=== PATIENT | female | born 1935 | race African-American/Black ===

== ENCOUNTER 2022-05-24 21:39 | Inpatient (IN) | payer MEDICARE, MEDICAID ==
[~2022-05-24] VITALS: Ht 160 cm; Wt 84.1 kg
[2022-05-24] MEDS ORDERED: NITROGLYCERIN 0.4MG TABLET SL SL PRN (22:15)
[2022-05-24] MEDS ORDERED: ASPIRIN 81MG TABLET PO ONE (22:15)
[2022-05-25 00:40] LABS: BASOPHILS % 0.8 % (0.0-2.0); EOSINOPHILS % 1.8 % (0.0-5.0); HEMATOCRIT. 29.1 % (36.0-48.0); HEMOGLOBIN. 9.6 g/dL (12.0-16.0); LYMPHOCYTES % 30.7 % (20.0-50.0); MEAN CORPUSCULAR HEMOGLOBIN 30.3 pg (28.0-32.0); MEAN CORPUSCULAR VOLUME 91.7 fL (81.0-99.0); MEAN PLATELET VOLUME 6.4 fl (7.4-10.4); MONOCYTES % 10.9 % (2.0-8.0); NEUTROPHILS % 55.8 % (40.0-76.0); PLATELET 216 x1000/uL (130-400); RED BLOOD CELL COUNT 3.17 mill/uL (4.2-5.4); RED CELL DISTRIBUTION WIDTH 15.6 % (11.6-14.6)
[2022-05-25 00:45] LABS: CHLORIDE 101 mEq/L (98-107)
[2022-05-25] MEDS ORDERED: ONDANSETRON HCL 4MG/2ML INJ IV PRN (07:45)
[2022-05-25] MEDS ORDERED: GUAIFENESIN 200MG/10ML SUGAR FREE UDC PO PRN (07:45)
[2022-05-25] MEDS ORDERED: ACETAMINOPHEN 325MG TABLET PO PRN (07:45)
[2022-05-25] MEDS ORDERED: MAGNESIUM/ALUMINUM HYDROXIDE/SIMETHICONE 30ML UDC PO PRN (07:45)
[2022-05-25] MEDS ORDERED: CLONIDINE 0.1MG TABLET PO PRN (07:45)
[2022-05-25] MEDS ORDERED: IPRATROPIUM/ALBUTEROL 0.5-3(2.5)MG/3ML NEB NEB PRN (07:45)
[2022-05-25] MEDS: INSULIN LISPRO 100 UNITS/ML SUBCUT SCH ×4 (08:20→21:00)
[2022-05-25 08:42] LABS: T4 FREE 1.24 ng/dL (0.76-1.46)
[2022-05-25] MEDS ORDERED: ASPIRIN 325MG EC TABLET PO SCH (09:00)
[2022-05-25] MEDS ORDERED: ENOXAPARIN 40MG/0.4ML SYR SUBCUT SCH (09:00)
[2022-05-25] MEDS: BLOOD SUGAR DIAGNOSTIC STRIP TEST SCH ×4 (09:29→21:00)
[2022-05-25] MEDS: PANTOPRAZOLE SODIUM 40 MG/VIAL IV SCH (09:37)
[2022-05-25 09:46] VITALS: BP 102/80
[2022-05-25] MEDS: DILTIAZEM HCL 60MG TABLET PO SCH ×3 (11:59→23:23)
[2022-05-25 12:00] VITALS: BP 132/69
[2022-05-25] MEDS ORDERED: APIX5TAB PO (13:17)
[2022-05-25] MEDS ORDERED: GABA-529 PO (13:27)
[2022-05-25] MEDS ORDERED: DOCU250C69 PO (13:27)
[2022-05-25] MEDS ORDERED: FURO20TA4 PO (13:27)
[2022-05-25] MEDS ORDERED: FERR325T6 PO (13:27)
[2022-05-25] MEDS ORDERED: CYAN500T9 PO (13:27)
[2022-05-25] MEDS ORDERED: MAGN400C PO (13:27)
[2022-05-25] MEDS ORDERED: LEVO25TA7 PO (13:27)
[2022-05-25] MEDS ORDERED: METO25TA6 PO (13:27)
[2022-05-25] MEDS ORDERED: LUTE1CAP5 PO (13:27)
[2022-05-25] MEDS ORDERED: LIDO700A30 TP (13:27)
[2022-05-25] MEDS ORDERED: TRAM50TA PO (13:27)
[2022-05-25] MEDS ORDERED: ASCO500C18 PO (13:27)
[2022-05-25] MEDS ORDERED: BRIM10DR2 EACHEYE (13:27)
[2022-05-25] MEDS: NITROGLYCERIN 0.4MG TABLET SL SL PRN (15:09)
[2022-05-25] MEDS: LIDOCAINE 5% PATCH TOP SCH (15:10)
[2022-05-25] MEDS ORDERED: NALOXONE HCL 0.4MG/ML VIAL IV PRN (15:15)
[2022-05-25] MEDS ORDERED: POTASSIUM CHLORIDE 20MEQ/PACKET PO NR (15:30)
[2022-05-25 15:37] VITALS: BP 110/68
[2022-05-25] MEDS ORDERED: FOLIC ACID 1 MG in SODIUM CHLORIDE 0.9% 500 ML IV NR (16:00)
[2022-05-25 20:00] VITALS: BP 96/66
[2022-05-25] MEDS ORDERED: ZOLPIDEM TARTRATE 5MG TABLET PO PRN (21:00)
[2022-05-25] MEDS: METOPROLOL TARTRATE 25MG TABLET PO SCH (21:00)
[2022-05-26] VITALS: BP 119/69
[2022-05-26 04:00] VITALS: BP 106/72
[2022-05-26] MEDS: NITROGLYCERIN 0.4MG TABLET SL SL PRN ×2 (05:36→05:45)
[2022-05-26] MEDS: DILTIAZEM HCL 60MG TABLET PO SCH (06:00)
[2022-05-26] MEDS: BLOOD SUGAR DIAGNOSTIC STRIP TEST SCH ×3 (07:06→21:00)
[2022-05-26] MEDS: INSULIN LISPRO 100 UNITS/ML SUBCUT SCH ×3 (07:06→21:00)
[2022-05-26 08:00] VITALS: BP 104/64
[2022-05-26 08:06] LABS: BASOPHILS % 0.6 % (0.0-2.0); EOSINOPHILS % 1.5 % (0.0-5.0); HEMATOCRIT. 31.3 % (36.0-48.0); HEMOGLOBIN. 10.3 g/dL (12.0-16.0); LYMPHOCYTES % 33.1 % (20.0-50.0); MEAN CORPUSCULAR HEMOGLOBIN 30.2 pg (28.0-32.0); MEAN CORPUSCULAR VOLUME 92.2 fL (81.0-99.0); MEAN PLATELET VOLUME 6.7 fl (7.4-10.4); NEUTROPHILS % 56.8 % (40.0-76.0); PLATELET 220 x1000/uL (130-400); RED CELL DISTRIBUTION WIDTH 15.4 % (11.6-14.6)
[2022-05-26 08:17] LABS: CHLORIDE 101 mEq/L (98-107)
[2022-05-26 08:31] LABS: CREATINE KINASE 49 IU/L (26-192); CREATINE KINASE MB FRACTION 1.2 ng/mL (0.5-3.6)
[2022-05-26] MEDS: TRAMADOL 50MG TABLET PO PRN ×2 (11:01→17:04)
[2022-05-26] MEDS: METOPROLOL TARTRATE 25MG TABLET PO SCH ×2 (11:06→21:00)
[2022-05-26] MEDS: APIXABAN 5 MG TABLET PO SCH ×2 (11:07→17:03)
[2022-05-26] MEDS: FOLIC ACID 1MG TABLET PO SCH (11:07)
[2022-05-26] MEDS: LIDOCAINE 5% PATCH TOP SCH (11:09)
[2022-05-26] MEDS: PANTOPRAZOLE SODIUM 40 MG/VIAL IV SCH (11:09)
[2022-05-26 12:00] VITALS: BP 93/60
[2022-05-26 16:00] VITALS: BP 107/72
[2022-05-26 20:00] VITALS: BP 107/68
[2022-05-26] MEDS: DOCUSATE SODIUM 100MG CAPSULE PO PRN (20:47)
[2022-05-27] VITALS: BP 106/74
[2022-05-27 04:00] VITALS: BP 123/84
[2022-05-27] MEDS: BLOOD SUGAR DIAGNOSTIC STRIP TEST SCH ×4 (05:50→20:24)
[2022-05-27] MEDS: INSULIN LISPRO 100 UNITS/ML SUBCUT SCH ×4 (05:51→20:23)
[2022-05-27 08:00] VITALS: BP 138/92
[2022-05-27] MEDS: FOLIC ACID 1MG TABLET PO SCH (09:30)
[2022-05-27] MEDS: APIXABAN 5 MG TABLET PO SCH ×2 (09:30→18:08)
[2022-05-27] MEDS: METOPROLOL TARTRATE 25MG TABLET PO SCH ×2 (09:30→20:23)
[2022-05-27] MEDS: PANTOPRAZOLE SODIUM 40 MG/VIAL IV SCH (09:32)
[2022-05-27] MEDS: TRAMADOL 50MG TABLET PO PRN ×2 (09:32→18:11)
[2022-05-27] MEDS: LIDOCAINE 5% PATCH TOP SCH (09:35)
[2022-05-27 12:00] VITALS: BP 107/72
[2022-05-27 16:00] VITALS: BP 103/71
[2022-05-27 20:00] VITALS: BP 97/61
[2022-05-27] MEDS: ACETAMINOPHEN 325MG TABLET PO PRN (20:52)
[2022-05-28] VITALS: BP 92/56
[2022-05-28 04:00] VITALS: BP 90/61
[2022-05-28] MEDS: BLOOD SUGAR DIAGNOSTIC STRIP TEST SCH ×4 (05:42→21:00)
[2022-05-28] MEDS: INSULIN LISPRO 100 UNITS/ML SUBCUT SCH ×4 (05:43→21:00)
[2022-05-28 08:00] VITALS: BP 105/63
[2022-05-28] MEDS: METOPROLOL TARTRATE 25MG TABLET PO SCH ×2 (09:00→21:00)
[2022-05-28] MEDS: DOCUSATE SODIUM 100MG CAPSULE PO PRN (09:13)
[2022-05-28] MEDS: FAMOTIDINE 20MG TABLET PO SCH (09:13)
[2022-05-28] MEDS: APIXABAN 5 MG TABLET PO SCH ×2 (09:13→16:41)
[2022-05-28] MEDS: FOLIC ACID 1MG TABLET PO SCH (09:13)
[2022-05-28] MEDS: LIDOCAINE 5% PATCH TOP SCH (09:15)
[2022-05-28] MEDS: TRAMADOL 50MG TABLET PO PRN ×2 (09:15→16:46)
[2022-05-28 12:00] VITALS: BP 108/70
[2022-05-28 16:00] VITALS: BP 109/75
[2022-05-28] MEDS: MIDODRINE HCL 5MG TABLET PO SCH (16:41)
[2022-05-28] MEDS: FUROSEMIDE 20MG TABLET PO SCH (16:52)
[2022-05-28 20:00] VITALS: BP 103/85
[2022-05-29] VITALS: BP 112/77
[2022-05-29 04:00] VITALS: BP 120/80
[2022-05-29] MEDS: INSULIN LISPRO 100 UNITS/ML SUBCUT SCH ×4 (06:08→21:00)
[2022-05-29] MEDS: BLOOD SUGAR DIAGNOSTIC STRIP TEST SCH ×4 (06:08→21:00)
[2022-05-29 08:00] VITALS: BP 114/74
[2022-05-29 08:28] LABS: HEMATOCRIT. 30.6 % (36.0-48.0); HEMOGLOBIN. 10.1 g/dL (12.0-16.0); LYMPHOCYTES % 30.7 % (20.0-50.0); MEAN CORPUSCULAR HEMOGLOBIN 30.1 pg (28.0-32.0); MEAN CORPUSCULAR VOLUME 90.9 fL (81.0-99.0); MEAN PLATELET VOLUME 6.8 fl (7.4-10.4); MONOCYTES % 8.7 % (2.0-8.0); NEUTROPHILS % 58.6 % (40.0-76.0); PLATELET 348 x1000/uL (130-400); RED BLOOD CELL COUNT 3.36 mill/uL (4.2-5.4)
[2022-05-29] MEDS: FUROSEMIDE 20MG TABLET PO SCH (08:36)
[2022-05-29] MEDS: DOCUSATE SODIUM 100MG CAPSULE PO PRN (08:36)
[2022-05-29] MEDS: APIXABAN 5 MG TABLET PO SCH ×2 (08:36→17:27)
[2022-05-29] MEDS: FOLIC ACID 1MG TABLET PO SCH (08:36)
[2022-05-29] MEDS: MIDODRINE HCL 5MG TABLET PO SCH ×3 (08:36→17:27)
[2022-05-29] MEDS: FAMOTIDINE 20MG TABLET PO SCH (08:36)
[2022-05-29] MEDS: TRAMADOL 50MG TABLET PO PRN ×2 (08:37→14:59)
[2022-05-29] MEDS: LIDOCAINE 5% PATCH TOP SCH (08:39)
[2022-05-29] MEDS: METOPROLOL TARTRATE 25MG TABLET PO SCH ×2 (09:00→21:00)
[2022-05-29 09:07] LABS: CHLORIDE 95 mEq/L (98-107)
[2022-05-29 12:00] VITALS: BP 116/79
[2022-05-29] MEDS ORDERED: FUROSEMIDE 40MG/4ML VIAL IVP NR (13:00)
[2022-05-29 16:00] VITALS: BP 130/91
[2022-05-30] VITALS: BP 122/89
[2022-05-30 04:00] VITALS: BP 119/81
[2022-05-30] MEDS: INSULIN LISPRO 100 UNITS/ML SUBCUT SCH ×4 (05:41→20:27)
[2022-05-30] MEDS: BLOOD SUGAR DIAGNOSTIC STRIP TEST SCH ×4 (05:41→20:27)
[2022-05-30 08:00] VITALS: BP 122/77
[2022-05-30] MEDS: MIDODRINE HCL 5MG TABLET PO SCH ×3 (09:01→17:00)
[2022-05-30] MEDS: FOLIC ACID 1MG TABLET PO SCH (09:01)
[2022-05-30] MEDS: APIXABAN 5 MG TABLET PO SCH ×2 (09:01→16:35)
[2022-05-30] MEDS: FAMOTIDINE 20MG TABLET PO SCH (09:01)
[2022-05-30] MEDS: LIDOCAINE 5% PATCH TOP SCH (09:01)
[2022-05-30] MEDS: METOPROLOL TARTRATE 25MG TABLET PO SCH ×2 (09:01→20:27)
[2022-05-30] MEDS: FUROSEMIDE 20MG TABLET PO SCH (09:03)
[2022-05-30 12:00] VITALS: BP 97/66
[2022-05-30 16:00] VITALS: BP 102/67
[2022-05-30 20:00] VITALS: BP 119/75
[2022-05-31] VITALS: BP 120/83
[2022-05-31 04:00] VITALS: BP 122/74
[2022-05-31] MEDS: INSULIN LISPRO 100 UNITS/ML SUBCUT SCH ×4 (06:06→21:00)
[2022-05-31] MEDS: BLOOD SUGAR DIAGNOSTIC STRIP TEST SCH ×4 (06:06→21:00)
[2022-05-31 08:00] VITALS: BP 112/60
[2022-05-31] MEDS: METOPROLOL TARTRATE 25MG TABLET PO SCH ×2 (09:00→21:09)
[2022-05-31] MEDS: FAMOTIDINE 20MG TABLET PO SCH (09:40)
[2022-05-31] MEDS: FOLIC ACID 1MG TABLET PO SCH (09:40)
[2022-05-31] MEDS: MIDODRINE HCL 5MG TABLET PO SCH ×3 (09:40→17:00)
[2022-05-31] MEDS: APIXABAN 5 MG TABLET PO SCH ×2 (09:40→17:00)
[2022-05-31] MEDS: LIDOCAINE 5% PATCH TOP SCH (09:41)
[2022-05-31] MEDS: FUROSEMIDE 20MG TABLET PO SCH (09:41)
[2022-05-31 12:00] VITALS: BP 112/76
[2022-05-31] MEDS ORDERED: FUROSEMIDE 40MG/4ML VIAL IVP NR (12:30)
[2022-05-31 16:00] VITALS: BP 106/78
[2022-05-31] MEDS: TRAMADOL 50MG TABLET PO PRN (17:32)
[2022-05-31] MEDS ORDERED: ASCO-339 PO (19:49)
[2022-05-31] MEDS ORDERED: TRAZ-251 PO (19:52)
[2022-05-31] MEDS ORDERED: OMEP40CA20 PO (19:53)
[2022-05-31] MEDS ORDERED: POTA-205 PO (19:54)
[2022-05-31] MEDS ORDERED: CARV12.545 PO (19:55)
[2022-05-31] MEDS ORDERED: LOSA50TA41 PO (19:55)
[2022-05-31] MEDS ORDERED: LUTE1CAP5 PO (19:57)
[2022-05-31] MEDS ORDERED: SULF500T8 PO (19:59)
[2022-05-31] MEDS ORDERED: TRAM50TA3 PO (19:59)
[2022-05-31 20:00] VITALS: BP 112/74
[2022-05-31] MEDS ORDERED: ONDA4TAB50 PO (20:00)
[2022-05-31] MEDS ORDERED: TOPUD PO (20:01)
[2022-05-31] MEDS ORDERED: BISA10SU62 RC (20:02)
[2022-05-31] MEDS ORDERED: LACT1CAP87 PO (20:03)
[2022-05-31] MEDS ORDERED: MELA5TAB19 PO (20:04)
[2022-05-31] MEDS ORDERED: AMIN30LI2 PO (20:05)
[2022-05-31] MEDS ORDERED: CARB15DR2 BOTHEYE (20:07)
[2022-05-31] MEDS: ACETAMINOPHEN 325MG TABLET PO PRN (21:09)
[2022-06-01] VITALS: BP 90/66
[2022-06-01 04:00] VITALS: BP 104/74
[2022-06-01] MEDS: BLOOD SUGAR DIAGNOSTIC STRIP TEST SCH ×4 (06:04→21:00)
[2022-06-01] MEDS: INSULIN LISPRO 100 UNITS/ML SUBCUT SCH ×4 (06:05→21:00)
[2022-06-01 08:00] VITALS: BP 101/73
[2022-06-01] MEDS: METOPROLOL TARTRATE 25MG TABLET PO SCH ×2 (09:00→21:00)
[2022-06-01] MEDS: FUROSEMIDE 20MG TABLET PO SCH (09:00)
[2022-06-01] MEDS: SPIRONOLACTONE 25MG TABLET PO SCH (09:01)
[2022-06-01] MEDS: APIXABAN 5 MG TABLET PO SCH ×2 (09:01→17:00)
[2022-06-01] MEDS: MIDODRINE HCL 5MG TABLET PO SCH ×3 (09:01→17:00)
[2022-06-01] MEDS: FAMOTIDINE 20MG TABLET PO SCH (09:01)
[2022-06-01] MEDS: FOLIC ACID 1MG TABLET PO SCH (09:02)
[2022-06-01] MEDS: LIDOCAINE 5% PATCH TOP SCH (09:03)
[2022-06-01 12:00] VITALS: BP 116/74
[2022-06-01] MEDS: FUROSEMIDE 40MG TABLET PO SCH (14:01)
[2022-06-01] MEDS: NITROFURANTOIN 100MG M/M CAPSULE PO SCH ×2 (14:01→21:03)
[2022-06-01 16:00] VITALS: BP 123/88
[2022-06-01 20:00] VITALS: BP 100/74
[2022-06-01] MEDS: TRAMADOL 50MG TABLET PO PRN (21:03)
[2022-06-02] VITALS (7 sets, daily range): BP systolic 83–134; BP diastolic 50–77
[2022-06-02] MEDS: INSULIN LISPRO 100 UNITS/ML SUBCUT SCH ×4 (06:09→20:57)
[2022-06-02] MEDS: BLOOD SUGAR DIAGNOSTIC STRIP TEST SCH ×4 (06:09→20:56)
[2022-06-02] MEDS: DEXTROSE 50% WATER 50ML SYRINGE IV PRN ×2 (08:34→12:41)
[2022-06-02] MEDS: FOLIC ACID 1MG TABLET PO SCH (08:57)
[2022-06-02] MEDS: NITROFURANTOIN 100MG M/M CAPSULE PO SCH ×2 (08:57→20:56)
[2022-06-02] MEDS: FAMOTIDINE 20MG TABLET PO SCH (08:58)
[2022-06-02] MEDS: MIDODRINE HCL 5MG TABLET PO SCH ×3 (08:58→17:52)
[2022-06-02] MEDS: APIXABAN 5 MG TABLET PO SCH (08:58)
[2022-06-02] MEDS: METOPROLOL TARTRATE 25MG TABLET PO SCH ×2 (09:00→20:56)
[2022-06-02] MEDS: FUROSEMIDE 40MG TABLET PO SCH (09:00)
[2022-06-02] MEDS: SPIRONOLACTONE 25MG TABLET PO SCH (09:00)
[2022-06-02] MEDS ORDERED: SODIUM CHLORIDE 0.9% 500 ML IV ONE (10:15)
[2022-06-02] MEDS ORDERED: GLUCAGON,HUMAN RECOMBINANT 1MG/VIAL IM SCH (10:30)
[2022-06-02] MEDS: LIDOCAINE 5% PATCH TOP SCH (10:48)
[2022-06-02 11:40] LABS: HEMATOCRIT. 34.7 % (36.0-48.0); HEMOGLOBIN. 11.5 g/dL (12.0-16.0); MEAN CORPUSCULAR HEMOGLOBIN 30.3 pg (28.0-32.0); MEAN CORPUSCULAR VOLUME 91.3 fL (81.0-99.0); MEAN PLATELET VOLUME 7.4 fl (7.4-10.4); PLATELET 364 x1000/uL (130-400); RED CELL DISTRIBUTION WIDTH 15.2 % (11.6-14.6)
[2022-06-02] MEDS: DEXT 5%/0.9% NACL 1,000 ML IV SCH (13:16)
[2022-06-02 14:09] LABS: NUCLEATED RED BLOOD CELLS 14 /100 WBC; PLATELET ESTIMATE NORMAL
[2022-06-02] MEDS ORDERED: APIXABAN 2.5 MG TABLET PO SCH (17:15)
[2022-06-02] MEDS: TRAMADOL 50MG TABLET PO PRN (21:10)
[2022-06-03] VITALS: BP 97/47
[2022-06-03 04:00] VITALS: BP 100/69
[2022-06-03] MEDS: BLOOD SUGAR DIAGNOSTIC STRIP TEST SCH ×4 (05:50→21:17)
[2022-06-03] MEDS: INSULIN LISPRO 100 UNITS/ML SUBCUT SCH ×4 (05:50→21:00)
[2022-06-03 08:00] VITALS: BP 102/60
[2022-06-03] MEDS: FUROSEMIDE 40MG TABLET PO SCH (09:00)
[2022-06-03] MEDS: FAMOTIDINE 20MG TABLET PO SCH ×2 (10:29→18:02)
[2022-06-03] MEDS: NITROFURANTOIN 100MG M/M CAPSULE PO SCH ×2 (10:29→21:08)
[2022-06-03] MEDS: MIDODRINE HCL 5MG TABLET PO SCH ×3 (10:30→18:03)
[2022-06-03] MEDS: FOLIC ACID 1MG TABLET PO SCH (10:30)
[2022-06-03] MEDS: METOPROLOL TARTRATE 25MG TABLET PO SCH ×2 (10:30→20:22)
[2022-06-03] MEDS: LIDOCAINE 5% PATCH TOP SCH (10:31)
[2022-06-03 10:32] LABS: HEMATOCRIT. 32.8 % (36.0-48.0); HEMOGLOBIN. 10.8 g/dL (12.0-16.0); MEAN CORPUSCULAR HEMOGLOBIN 30.3 pg (28.0-32.0); MEAN PLATELET VOLUME 7.7 fl (7.4-10.4); PLATELET 258 x1000/uL (130-400); RED BLOOD CELL COUNT 3.56 mill/uL (4.2-5.4); RED CELL DISTRIBUTION WIDTH 15.4 % (11.6-14.6)
[2022-06-03] MEDS: DEXT 5%/0.9% NACL 1,000 ML IV SCH (11:04)
[2022-06-03] MEDS ORDERED: METOPROLOL TARTRATE 5MG/5ML VIAL IV NR (11:30)
[2022-06-03 12:00] VITALS: BP 96/58
[2022-06-03 13:25] LABS: BG BASE EXCESS -5.8 mmol/L (-2.0-2.0); BG CARBOXYHEMOGLOBIN 0.2 % (0.5-1.5); BG DEOXYHEMOGLOBIN 3.6 % (0.0-5.0); BG HCO3 ACT 17.9 mmol/L (22.0-26.0); BG METHEMOGLOBIN 0.2 % (0.0-1.5); BG OXYGEN SATURATION 96.4 % (92.0-98.5); BG PCO2 30.2 mmHg (35.0-45.0); BG PH 7.391 (7.350-7.450); BG PO2 89.6 mmHg (75.0-100.0); BG SAMPLE SITE RIGHT BRACHIAL; BG TOTAL HEMOGLOBIN 13.2 g/dL (12.0-18.0); BG VENT MODE NASAL CANNULA
[2022-06-03] MEDS: MEGESTROL ACETATE 400 MG/10 ML UDC PO SCH (14:52)
[2022-06-03 16:00] VITALS: BP 96/66
[2022-06-03] MEDS ORDERED: ERGOCALCIFEROL 50000UNITS CAPSULE PO SCH (16:00)
[2022-06-03 17:21] LABS: NUCLEATED RED BLOOD CELLS 9 /100 WBC; PLATELET ESTIMATE NORMAL
[2022-06-03] MEDS: DEXAMETHASONE 6MG TABLET PO SCH (18:02)
[2022-06-03] MEDS: ASCORBIC ACID 250 MG TABLET PO SCH (18:09)
[2022-06-03 20:00] VITALS: BP 109/75
[2022-06-03] MEDS: TRAMADOL 50MG TABLET PO PRN (21:09)
[2022-06-04] VITALS: BP 104/68
[2022-06-04 01:42] LABS: PROTHROMBIN TIME 79.1 sec (9.6-11.0)
[2022-06-04 02:47] LABS: INR 8.8
[2022-06-04 04:00] VITALS: BP 91/46
[2022-06-04] MEDS ORDERED: PHYTONADIONE 10MG/ML AMP IM NR (04:15)
[2022-06-04] MEDS: DEXT 5%/0.9% NACL 1,000 ML IV SCH (04:56)
[2022-06-04] MEDS: INSULIN LISPRO 100 UNITS/ML SUBCUT SCH ×4 (06:32→21:00)
[2022-06-04] MEDS: BLOOD SUGAR DIAGNOSTIC STRIP TEST SCH ×4 (06:32→21:00)
[2022-06-04 08:00] VITALS: BP 111/80
[2022-06-04] MEDS ORDERED: FUROSEMIDE 40MG/4ML VIAL IVP NR (08:56)
[2022-06-04] MEDS: ASCORBIC ACID 250 MG TABLET PO SCH (09:00)
[2022-06-04] MEDS ORDERED: MEGESTROL ACETATE 400 MG/10 ML UDC PO SCH (09:00)
[2022-06-04 10:12] LABS: HEMATOCRIT. 33.1 % (36.0-48.0); HEMOGLOBIN. 10.6 g/dL (12.0-16.0); MEAN CORPUSCULAR HEMOGLOBIN 30.4 pg (28.0-32.0); MEAN CORPUSCULAR VOLUME 95.2 fL (81.0-99.0); MEAN PLATELET VOLUME 7.7 fl (7.4-10.4); PLATELET 256 x1000/uL (130-400); RED BLOOD CELL COUNT 3.48 mill/uL (4.2-5.4); RED CELL DISTRIBUTION WIDTH 15.9 % (11.6-14.6)
[2022-06-04 10:20] LABS: CHLORIDE 86 mEq/L (98-107)
[2022-06-04] MEDS: MEGESTROL ACETATE 400 MG/10 ML UDC PO SCH (10:22)
[2022-06-04] MEDS: MIDODRINE HCL 5MG TABLET PO SCH ×3 (10:22→17:38)
[2022-06-04] MEDS: DEXAMETHASONE 6MG TABLET PO SCH (10:23)
[2022-06-04] MEDS: NITROFURANTOIN 100MG M/M CAPSULE PO SCH (10:23)
[2022-06-04] MEDS: METOPROLOL TARTRATE 25MG TABLET PO SCH ×2 (10:23→20:52)
[2022-06-04] MEDS: FOLIC ACID 1MG TABLET PO SCH (10:23)
[2022-06-04] MEDS: LIDOCAINE 5% PATCH TOP SCH (10:24)
[2022-06-04] MEDS: FAMOTIDINE 20MG TABLET PO SCH ×2 (10:24→17:39)
[2022-06-04 10:28] LABS: PHOSPHORUS 3.9 mg/dL (2.5-4.9)
[2022-06-04] MEDS ORDERED: DEXT 10%/0.9% NACL 1,000 ML IV SCH (11:45)
[2022-06-04 12:00] VITALS: BP 98/62
[2022-06-04] MEDS ORDERED: SODIUM BICARBONATE 8.4% 1 MEQ/ML 50ML SYR IV NR ×2 (12:30→22:00)
[2022-06-04 12:37] LABS: NUCLEATED RED BLOOD CELLS 13 /100 WBC
[2022-06-04 12:38] LABS: PLATELET ESTIMATE NORMAL
[2022-06-04] MEDS ORDERED: SODIUM CHLORIDE 23.4% 154 MEQ in DEXT 10% WATER 1,000 ML IV SCH (13:00)
[2022-06-04] MEDS ORDERED: SODIUM CHLORIDE 3% 250 ML IV ONE (13:00)
[2022-06-04] MEDS: LEVOTHYROXINE SODIUM 25MCG TABLET PO SCH (13:41)
[2022-06-04 16:00] VITALS: BP 97/73
[2022-06-04] MEDS: FUROSEMIDE 40MG/4ML VIAL IVP SCH (16:16)
[2022-06-04 20:00] VITALS: BP 108/69
[2022-06-04 20:25] LABS: CLARITY URINE CLEAR (CLEAR); COLOR URINE DARK YELLOW (YELLOW); KETONES URINE TRACE (NEGATIVE); LEUKOCYTE ESTERASE URINE TRACE (NEGATIVE); NITRITE URINE NEGATIVE (NEGATIVE); OCCULT BLOOD URINE 2+ (NEGATIVE); PROTEIN URINE 1+ (NEGATIVE); SPECIFIC GRAVITY URINE 1.014 (1.005-1.030); UROBILINOGEN URINE 0.2 E.U./dL (0.2-1.0)
[2022-06-04 20:59] LABS: SODIUM URINE RANDOM 7 mEq/L
[2022-06-04] MEDS: SODIUM CHLORIDE 23.4% 154 MEQ in DEXT 10% WATER 1,000 ML IV SCH (22:23)
[2022-06-04] MEDS: DEXTROSE 50% WATER 50ML SYRINGE IV PRN (22:34)
[2022-06-05] VITALS: BP 115/76
[2022-06-05 04:00] VITALS: BP 115/70
[2022-06-05] MEDS: BLOOD SUGAR DIAGNOSTIC STRIP TEST SCH ×4 (05:55→20:32)
[2022-06-05] MEDS: INSULIN LISPRO 100 UNITS/ML SUBCUT SCH ×4 (05:55→20:32)
[2022-06-05] MEDS: LEVOTHYROXINE SODIUM 25MCG TABLET PO SCH (06:00)
[2022-06-05 06:43] LABS: BASOPHILS % 0.1 % (0.0-2.0); EOSINOPHILS % 1.5 % (0.0-5.0); HEMATOCRIT. 31.7 % (36.0-48.0); HEMOGLOBIN. 10.5 g/dL (12.0-16.0); LYMPHOCYTES % 21.4 % (20.0-50.0); MEAN CORPUSCULAR HEMOGLOBIN 29.9 pg (28.0-32.0); MEAN CORPUSCULAR VOLUME 90.5 fL (81.0-99.0); MEAN PLATELET VOLUME 7.9 fl (7.4-10.4); MONOCYTES % 7.3 % (2.0-8.0); NEUTROPHILS % 69.7 % (40.0-76.0); PLATELET 231 x1000/uL (130-400); RED CELL DISTRIBUTION WIDTH 15.5 % (11.6-14.6)
[2022-06-05 06:49] LABS: CHLORIDE 89 mEq/L (98-107)
[2022-06-05 07:01] LABS: PHOSPHORUS 3.2 mg/dL (2.5-4.9)
[2022-06-05 07:30] VITALS: BP 98/67
[2022-06-05 08:24] LABS: BG BASE EXCESS -3.8 mmol/L (-2.0-2.0); BG CARBOXYHEMOGLOBIN 0.3 % (0.5-1.5); BG DEOXYHEMOGLOBIN 1.5 % (0.0-5.0); BG HCO3 ACT 19.8 mmol/L (22.0-26.0); BG METHEMOGLOBIN 0.9 % (0.0-1.5); BG OXYGEN SATURATION 98.5 % (92.0-98.5); BG OXYHEMOGLOBIN 97.3 % (94.0-97.0); BG PCO2 31.2 mmHg (35.0-45.0); BG PH 7.421 (7.350-7.450); BG PO2 135.9 mmHg (75.0-100.0); BG SAMPLE SITE RIGHT BRACHIAL; BG TOTAL HEMOGLOBIN 10.9 g/dL (12.0-18.0); BG VENT MODE NASAL CANNULA
[2022-06-05] MEDS: METOPROLOL TARTRATE 25MG TABLET PO SCH ×3 (09:00→21:00)
[2022-06-05] MEDS: DEXAMETHASONE 6MG TABLET PO SCH (09:20)
[2022-06-05] MEDS: MIDODRINE HCL 5MG TABLET PO SCH ×3 (09:20→17:49)
[2022-06-05] MEDS: FUROSEMIDE 40MG/4ML VIAL IVP SCH ×2 (09:20→17:49)
[2022-06-05] MEDS: ASCORBIC ACID 250 MG TABLET PO SCH (09:21)
[2022-06-05] MEDS: FAMOTIDINE 20MG TABLET PO SCH ×2 (09:21→17:49)
[2022-06-05] MEDS: FOLIC ACID 1MG TABLET PO SCH (09:21)
[2022-06-05] MEDS: LIDOCAINE 5% PATCH TOP SCH (09:22)
[2022-06-05 12:00] VITALS: BP 96/57
[2022-06-05] MEDS: CHOLECALCIFEROL (D3) 1000 UNIT TABLET PO SCH (14:00)
[2022-06-05 16:00] VITALS: BP 101/60
[2022-06-05] MEDS: CALCIUM CARBONATE 500MG TABLET CHEW PO SCH (17:49)
[2022-06-05 20:00] VITALS: BP 101/68
[2022-06-06] VITALS: BP 100/65
[2022-06-06 05:01] VITALS: BP 105/49
[2022-06-06] MEDS: BLOOD SUGAR DIAGNOSTIC STRIP TEST SCH ×4 (06:14→20:48)
[2022-06-06] MEDS: INSULIN LISPRO 100 UNITS/ML SUBCUT SCH ×4 (06:14→20:48)
[2022-06-06] MEDS: FUROSEMIDE 40MG/4ML VIAL IVP SCH (06:36)
[2022-06-06] MEDS: LEVOTHYROXINE SODIUM 25MCG TABLET PO SCH (06:37)
[2022-06-06 07:47] LABS: BG BASE EXCESS -5.3 mmol/L (-2.0-2.0); BG CARBOXYHEMOGLOBIN 0.3 % (0.5-1.5); BG DEOXYHEMOGLOBIN 6.8 % (0.0-5.0); BG HCO3 ACT 18.1 mmol/L (22.0-26.0); BG METHEMOGLOBIN 0.2 % (0.0-1.5); BG OXYGEN SATURATION 93.2 % (92.0-98.5); BG OXYHEMOGLOBIN 92.7 % (94.0-97.0); BG PCO2 28.7 mmHg (35.0-45.0); BG PH 7.417 (7.350-7.450); BG PO2 68.5 mmHg (75.0-100.0); BG SAMPLE SITE RIGHT BRACHIAL; BG TOTAL HEMOGLOBIN 11.3 g/dL (12.0-18.0); BG VENT MODE NASAL CANNULA
[2022-06-06] MEDS: SODIUM CHLORIDE 23.4% 154 MEQ in DEXT 10% WATER 1,000 ML IV SCH (07:55)
[2022-06-06 08:00] VITALS: BP 95/69
[2022-06-06] MEDS: METOPROLOL TARTRATE 25MG TABLET PO SCH ×2 (09:02→20:48)
[2022-06-06] MEDS: CALCIUM CARBONATE 500MG TABLET CHEW PO SCH ×2 (09:02→17:32)
[2022-06-06] MEDS: MIDODRINE HCL 5MG TABLET PO SCH ×3 (09:03→17:32)
[2022-06-06] MEDS: FOLIC ACID 1MG TABLET PO SCH (09:03)
[2022-06-06] MEDS: DEXAMETHASONE 6MG TABLET PO SCH (09:03)
[2022-06-06] MEDS: CHOLECALCIFEROL (D3) 1000 UNIT TABLET PO SCH (09:04)
[2022-06-06] MEDS: FAMOTIDINE 20MG TABLET PO SCH (09:04)
[2022-06-06] MEDS: ASCORBIC ACID 250 MG TABLET PO SCH (09:06)
[2022-06-06] MEDS: LIDOCAINE 5% PATCH TOP SCH (09:08)
[2022-06-06 12:00] VITALS: BP 98/59
[2022-06-06 16:00] VITALS: BP 112/72
[2022-06-06] MEDS ORDERED: PANTOPRAZOLE SODIUM 40 MG/VIAL IV NR (18:00)
[2022-06-06 18:27] LABS: HEMATOCRIT. 31.1 % (36.0-48.0); HEMOGLOBIN. 10.2 g/dL (12.0-16.0); MEAN CORPUSCULAR HEMOGLOBIN 29.7 pg (28.0-32.0); MEAN CORPUSCULAR VOLUME 90.4 fL (81.0-99.0); MEAN PLATELET VOLUME 8.3 fl (7.4-10.4); PLATELET 166 x1000/uL (130-400); RED BLOOD CELL COUNT 3.44 mill/uL (4.2-5.4); RED CELL DISTRIBUTION WIDTH 15.7 % (11.6-14.6)
[2022-06-06 18:43] LABS: CHLORIDE 88 mEq/L (98-107)
[2022-06-06 19:13] LABS: NUCLEATED RED BLOOD CELLS 9 /100 WBC
[2022-06-06 19:14] LABS: PLATELET ESTIMATE NORMAL
[2022-06-06 20:00] VITALS: BP 100/42
[2022-06-07] VITALS (31 sets, daily range): BP systolic 86–126; BP diastolic 36–68
[2022-06-07] MEDS ORDERED: PANTOPRAZOLE SODIUM 40 MG/VIAL IV SCH (06:00)
[2022-06-07] MEDS: BLOOD SUGAR DIAGNOSTIC STRIP TEST SCH ×4 (06:15→20:45)
[2022-06-07] MEDS: INSULIN LISPRO 100 UNITS/ML SUBCUT SCH ×4 (06:15→20:45)
[2022-06-07] MEDS: LEVOTHYROXINE SODIUM 25MCG TABLET PO SCH (06:40)
[2022-06-07] MEDS: LIDOCAINE 5% PATCH TOP SCH (09:00)
[2022-06-07] MEDS: ASCORBIC ACID 250 MG TABLET PO SCH (09:00)
[2022-06-07] MEDS: FAMOTIDINE 20MG/2ML VIAL IV SCH (09:00)
[2022-06-07] MEDS: METOPROLOL TARTRATE 25MG TABLET PO SCH ×2 (09:00→20:25)
[2022-06-07] MEDS: FUROSEMIDE 40MG/4ML VIAL IVP SCH (09:00)
[2022-06-07] MEDS: CALCIUM CARBONATE 500MG TABLET CHEW PO SCH ×2 (09:00→16:08)
[2022-06-07] MEDS: MIDODRINE HCL 5MG TABLET PO SCH ×3 (09:00→16:08)
[2022-06-07] MEDS: FOLIC ACID 1MG TABLET PO SCH (09:00)
[2022-06-07] MEDS: CHOLECALCIFEROL (D3) 1000 UNIT TABLET PO SCH (09:00)
[2022-06-07 09:30] LABS: BG BASE EXCESS -6.6 mmol/L (-2.0-2.0); BG CARBOXYHEMOGLOBIN 0.2 % (0.5-1.5); BG DEOXYHEMOGLOBIN 0.2 % (0.0-5.0); BG FRACTION INSPIRED OXYGEN 100; BG HCO3 ACT 15.9 mmol/L (22.0-26.0); BG METHEMOGLOBIN 0.2 % (0.0-1.5); BG OXYGEN SATURATION 99.8 % (92.0-98.5); BG OXYHEMOGLOBIN 99.4 % (94.0-97.0); BG PCO2 23.9 mmHg (35.0-45.0); BG PH 7.442 (7.350-7.450); BG PO2 299.3 mmHg (75.0-100.0); BG SAMPLE SITE RIGHT BRACHIAL; BG TOTAL HEMOGLOBIN 11.5 g/dL (12.0-18.0); BG VENT MODE MASK - NRB
[2022-06-07] MEDS ORDERED: PHENYLEPHRINE 100 MG in DEXT 5% WATER 240 ML IV PRN (10:00)
[2022-06-07] MEDS ORDERED: SODIUM BICARBONATE 8.4% 1 MEQ/ML 50ML SYR IV SCH (10:00)
[2022-06-07 10:09] LABS: CHLORIDE 90 mEq/L (98-107)
[2022-06-07 10:25] LABS: HEMOGLOBIN. 11.2 g/dL (12.0-16.0); MEAN CORPUSCULAR HEMOGLOBIN 29.9 pg (28.0-32.0); MEAN CORPUSCULAR VOLUME 93.8 fL (81.0-99.0); MEAN PLATELET VOLUME 8.7 fl (7.4-10.4); PLATELET 148 x1000/uL (130-400); RED BLOOD CELL COUNT 3.73 mill/uL (4.2-5.4); RED CELL DISTRIBUTION WIDTH 16.1 % (11.6-14.6)
[2022-06-07 11:09] LABS: NUCLEATED RED BLOOD CELLS 4 /100 WBC; PLATELET ESTIMATE NORMAL
[2022-06-07] MEDS: DEXTROSE 50% WATER 50ML SYRINGE IV PRN ×2 (16:08→20:34)
[2022-06-07] MEDS: HYDROCORTISONE SOD SUCCINATE 100 MG/2 ML VIAL IV SCH ×2 (16:08→21:44)
[2022-06-07] MEDS: SODIUM CHLORIDE 23.4% 154 MEQ in DEXT 10% WATER 1,000 ML IV SCH (20:34)
[2022-06-08] VITALS (75 sets, daily range): BP systolic 57–156; BP diastolic 17–84
[2022-06-08] MEDS: BLOOD SUGAR DIAGNOSTIC STRIP TEST SCH (05:33)
[2022-06-08] MEDS: DEXTROSE 50% WATER 50ML SYRINGE IV PRN (05:34)
[2022-06-08] MEDS: HYDROCORTISONE SOD SUCCINATE 100 MG/2 ML VIAL IV SCH ×3 (05:34→21:20)
[2022-06-08] MEDS: LEVOTHYROXINE SODIUM 25MCG TABLET PO SCH (05:35)
[2022-06-08] MEDS: INSULIN LISPRO 100 UNITS/ML SUBCUT SCH (06:10)
[2022-06-08] MEDS: FAMOTIDINE 20MG/2ML VIAL IV SCH (09:21)
[2022-06-08] MEDS: FUROSEMIDE 40MG/4ML VIAL IVP SCH (09:22)
[2022-06-08] MEDS: LIDOCAINE 5% PATCH TOP SCH (09:23)
[2022-06-09] VITALS (36 sets, daily range): BP systolic 89–120; BP diastolic 44–70
[2022-06-09] MEDS: SODIUM CHLORIDE 23.4% 154 MEQ in DEXT 10% WATER 1,000 ML IV SCH ×2 (03:38→23:59)
[2022-06-09] MEDS: HYDROCORTISONE SOD SUCCINATE 100 MG/2 ML VIAL IV SCH (05:23)
[2022-06-09] MEDS: FUROSEMIDE 40MG/4ML VIAL IVP SCH (09:34)
[2022-06-09] MEDS: FAMOTIDINE 20MG/2ML VIAL IV SCH (09:34)
[2022-06-10] VITALS (33 sets, daily range): BP systolic 50–160; BP diastolic 22–94
[2022-06-10] MEDS: FAMOTIDINE 20MG/2ML VIAL IV SCH (09:37)
[2022-06-10] MEDS: FUROSEMIDE 40MG/4ML VIAL IVP SCH (09:37)
[2022-06-11] VITALS: BP 54/28
[2022-06-11 01:00] VITALS: BP 47/25
[2022-06-11 02:00] VITALS: BP 31/19
== END 2022-06-11 02:39 | DRG 871 ==
LOC: ER 21:39 → 8WST 05-25 05:13 → SUPCPDRO 05-25 07:33 → ENRESERV 05-25 07:35 → CMPBEDREQ 05-26 01:39 → 7EST 05-26 09:21 → MICUSO 06-07 11:43
PROVIDERS: ADMIT Internal Medicine; ATTEND Internal Medicine
DX: A41.89 Other specified sepsis (principal); E43 Unspecified severe protein-calorie malnutrition; U07.1 COVID-19; J12.82 Pneumonia due to coronavirus disease 2019; I50.43 Acute on chronic combined systolic (congestive) and diastolic (congestive) heart failure; G92.8 Other toxic encephalopathy; K72.00 Acute and subacute hepatic failure without coma; J96.21 Acute and chronic respiratory failure with hypoxia; N17.9 Acute kidney failure, unspecified; N39.0 Urinary tract infection, site not specified; D68.9 Coagulation defect, unspecified; E87.1 Hypo-osmolality and hyponatremia; I47.2 Ventricular tachycardia; I11.0 Hypertensive heart disease with heart failure; E83.51 Hypocalcemia; E87.6 Hypokalemia; D52.9 Folate deficiency anemia, unspecified; I44.7 Left bundle-branch block, unspecified; E03.9 Hypothyroidism, unspecified; E11.649 Type 2 diabetes mellitus with hypoglycemia without coma; I27.20 Pulmonary hypertension, unspecified; I48.0 Paroxysmal atrial fibrillation; K76.0 Fatty (change of) liver, not elsewhere classified; R65.20 Severe sepsis without septic shock; Z66 Do not resuscitate; E11.42 Type 2 diabetes mellitus with diabetic polyneuropathy; K21.9 Gastro-esophageal reflux disease without esophagitis; M19.90 Unspecified osteoarthritis, unspecified site; I95.9 Hypotension, unspecified; Z51.5 Encounter for palliative care; Z79.01 Long term (current) use of anticoagulants; Z78.9 Other specified health status; Z99.81 Dependence on supplemental oxygen; Z68.32 Body mass index [BMI] 32.0-32.9, adult; R07.89 Other chest pain
CPT/HCPCS: 36415; 36600; 71045; 76700; 80048; 80053; 80061; 80076; 81003; 82140; 82330; 82375; 82550; 82553; 82607; 82746; 82805; 82962; 83036; 83540; 83550; 83605; 83735; 83880; 83930; 83935; 84100; 84145; 84300; 84439; 84443; 84484; 84550; 85018; 85025; 87426; 92610; 93005; 93306; 93970; 99285; C9113; J1610; J1650; J1720; J1940; J2370; J2405; J3430; J3490; J7040; J7042; J7060; J7131; A4315